=== PATIENT | male | born 1950 | race Caucasian/White ===

== ENCOUNTER 2020-11-17 14:43 | Inpatient (IN) ==
[2020-11-17] MEDS ORDERED: Acetaminophen 325 MG TABLET PO PRN (17:36)
[2020-11-17] MEDS ORDERED: Ondansetron 4 MG/2 ML VIAL IVP PRN (17:36)
[2020-11-17] MEDS ORDERED: Naloxone 0.4 MG/ML INJ IVP PRN (17:36)
[2020-11-17] MEDS ORDERED: *HR* HYDROcodone/Acet 5/325 mg TABLET PO PRN (17:36)
[2020-11-17] MEDS ORDERED: Melatonin 3 MG TABLET PO PRN (17:36)
[2020-11-17] MEDS ORDERED: Losartan/HCTZ 50-12.5 TABLET PO ONE (17:42)
[2020-11-17] MEDS ORDERED: carvediloL 6.25 MG TABLET PO SCH (17:45)
[2020-11-17 17:55] LABS: Basophils % 0.4 %; Eosinophils # 0.1 K/mcL (0.0-0.6); Eosinophils % 0.9 %; Hematocrit 41.2 % (37.5-50.1); Hemoglobin 13.4 g/dL (12.9-16.9); Immature Granulocytes % 0.3 % (0-4); Lymphocytes # 1.3 K/mcL (0.6-4.6); Lymphocytes % 16.8 %; Mean Corpuscular HGB Conc 32.5 g/dL (31.6-35.5); Mean Corpuscular Hemoglobin 27.1 pg (28.0-33.3); Mean Corpuscular Volume 83.4 fL (83.0-100.0); Mean Platelet Volume 9.4 fL (9.4-12.4); Monocytes # 0.4 K/mcL (0.0-1.3); Monocytes % 5.7 %; Neutrophils # 5.9 K/mcL (1.6-8.9); Platelet Count 267 K/mcL (140-400); Red Blood Count 4.94 M/mcL (4.19-5.50); Red Cell Distribution Width 13.6 % (11.5-14.5); Segmented Neutrophils % 75.9 %; White Blood Count 7.7 K/mcL (4.3-11.1)
[2020-11-17 18:17] LABS: BUN/Creatinine Ratio 16 (6-26); Blood Urea Nitrogen 16 mg/dL (8-23); Carbon Dioxide 25 mEq/L (23-29); Chloride 103 mEq/L (98-107); Glucose 109 mg/dL (70-105); Magnesium 2.3 mg/dL (1.6-2.6); Osmolality,Calculated 286 (280-300); Sodium 137 mEq/L (136-145); eGFR For African Americans > 60 (> 60); eGFR For Non-African Americans > 60 (> 60)
[2020-11-17] MEDS: Aspirin Enteric Coated 81 MG Tablet PO SCH (21:32)
[2020-11-18 05:18] LABS: Hematocrit 40.9 % (37.5-50.1); Hemoglobin 13.1 g/dL (12.9-16.9); Mean Corpuscular Hemoglobin 26.9 pg (28.0-33.3); Mean Platelet Volume 9.2 fL (9.4-12.4); Platelet Count 244 K/mcL (140-400); Red Blood Count 4.87 M/mcL (4.19-5.50); Red Cell Distribution Width 13.4 % (11.5-14.5); White Blood Count 6.5 K/mcL (4.3-11.1)
[2020-11-18 05:36] LABS: BUN/Creatinine Ratio 16 (6-26); Blood Urea Nitrogen 16 mg/dL (8-23); Calcium 9.9 mg/dL (8.6-10.3); Carbon Dioxide 24 mEq/L (23-29); Chloride 103 mEq/L (98-107); Glucose 99 mg/dL (70-105); Osmolality,Calculated 283 (280-300); Potassium 3.7 mEq/L (3.5-5.1); Sodium 136 mEq/L (136-145); eGFR For African Americans > 60 (> 60); eGFR For Non-African Americans > 60 (> 60)
[2020-11-18] MEDS ORDERED: Perflutren Lipid Microsphere 1.3 ML in 0.9 % Sodium Chloride 8.7 ML IVP PRN (08:21)
[2020-11-18] MEDS: Aspirin Enteric Coated 81 MG Tablet PO SCH (08:37)
[2020-11-18] MEDS ORDERED: hydroCHLOROthiazide 25 MG TABLET PO SCH (09:00)
[2020-11-18] MEDS ORDERED: amLODIPine 5 MG TABLET PO SCH (09:00)
[2020-11-18] MEDS ORDERED: Isovue-370 500 ML BOTTLE IVP ONE (13:39)
[2020-11-18] MEDS: Famotidine 20 MG TABLET PO SCH (20:18)
[2020-11-19 05:06] LABS: Chol/HDL Ratio 4.1 (0-4.9)
[2020-11-19] MEDS: Aspirin Enteric Coated 81 MG Tablet PO SCH (09:05)
[2020-11-19] MEDS: Famotidine 20 MG TABLET PO SCH ×2 (09:05→20:31)
[2020-11-19 12:22] LABS: Adenovirus Not Detected (Not Detect); Bordetella Pertussis Not Detected (Not Detect); Chlamydophila pneumoniae Not Detected (Not Detect); Coronavirus 229E Not Detected (Not Detect); Coronavirus HKU1 Not Detected (Not Detect); Coronavirus NL63 Not Detected (Not Detect); Coronavirus OC43 Not Detected (Not Detect); Human Metapneumovirus Not Detected (Not Detect); Human Rhinovirus/Enterovirus Not Detected (Not Detect); Influenza A Subtype 2009 H1 Not Detected (Not Detect); Influenza B Not Detected (Not Detect); Mycoplasma pneumoniae Not Detected (Not Detect); Parainfluenza Virus 1 Not Detected (Not Detect); Parainfluenza Virus 2 Not Detected (Not Detect); Parainfluenza Virus 3 Not Detected (Not Detect); Parainfluenza Virus 4 Not Detected (Not Detect); Respiratory Syncytial Virus Not Detected (Not Detect); SARS-CoV-2 Not Detected (Not Detect)
[2020-11-20] MEDS: *HR* Enoxaparin 40 MG/0.4 ML SYRINGE SQ SCH (05:31)
[2020-11-20] MEDS: Famotidine 20 MG TABLET PO SCH ×2 (07:47→20:36)
[2020-11-20] MEDS: Aspirin Enteric Coated 81 MG Tablet PO SCH (07:48)
[2020-11-20] MEDS ORDERED: 0.9 % Sodium Chloride 500 ML IVC ONE (10:51)
[2020-11-20] MEDS ORDERED: *HR* Midazolam HCl 2 MG/2 ML VIAL IVP PRN (10:51)
[2020-11-20] MEDS ORDERED: Lidocaine Viscous Oral Soln 15 ML SOLUTION MM PRN (10:51)
[2020-11-20] MEDS: *HR* FentaNYL (PF) 100 MCG/2 ML VIAL IVP PRN ×4 (11:20→11:32)
[2020-11-20] MEDS: *HR* Midazolam HCl 5 MG/5 ML VIAL IVP ONE ×4 (11:20→11:32)
[2020-11-21] MEDS: *HR* Enoxaparin 40 MG/0.4 ML SYRINGE SQ SCH (05:37)
[2020-11-21 06:39] VITALS: BP 121/76
[2020-11-21] MEDS: Famotidine 20 MG TABLET PO SCH (07:33)
[2020-11-21] MEDS: Aspirin Enteric Coated 81 MG Tablet PO SCH (07:33)
== END 2020-11-21 10:36 | disposition home or self-care (01) | DRG 64 ==
LOC: 3ANU → SUATTDRO 17:11
PROVIDERS: ADMIT Internal Medicine; ATTEND Family Medicine

== ENCOUNTER 2021-06-16 10:24 | Inpatient (IN) ==
[~2021-06-16 10:24] MED LIST: Acetaminophen IV 1,000 MG/100 ML BAG IVPB ONE; Ringers Solution, Lactated 1,000 ML IVC ONE
[2021-06-16] MEDS ORDERED: CeFAZolin Syr 2,000MG/20 ML 2,000 MG/20 ML SYRINGE IVPB ONE (10:56)
[2021-06-16] MEDS ORDERED: Vancomycin 1,250 MG/262.5 ML IV.SOLN IVPB ONE (10:56)
[2021-06-16] MEDS ORDERED: Heparin 1,000 UNITS/500 mL 0 ML ONE (11:04)
[2021-06-16] MEDS ORDERED: Protamine Sulfate 50 MG/5 ML VIAL IVP ONE ×3 (11:10→15:30)
[2021-06-16] MEDS ORDERED: Vancomycin 1,000 MG VIAL ONE (11:11)
[2021-06-16] MEDS ORDERED: Heparin 1,000 UNITS/500 mL 1,000 ML ONE (11:17)
[2021-06-16] MEDS ORDERED: Nitroglycerin 0.4 MG TAB.SUBL SL PRN ×3 (11:39→17:53)
[2021-06-16] MEDS ORDERED: *HR* HYDROmorphone (PF) 1 MG/ML SYRINGE IVP PRN (11:39)
[2021-06-16] MEDS ORDERED: Albuterol 2.5 MG/3 ML NEBULIZER IH PRN (11:39)
[2021-06-16] MEDS ORDERED: Ondansetron 4 MG/2 ML VIAL IVP PRN (11:39)
[2021-06-16] MEDS ORDERED: Naloxone 0.4 MG/ML INJ IVP PRN ×2 (11:39→16:26)
[2021-06-16] MEDS ORDERED: *HR* Metoprolol 5 MG/5 ML VIAL IVP PRN (11:39)
[2021-06-16] MEDS ORDERED: *HR* FentaNYL (PF) 100 MCG/2 ML VIAL IVP PRN (11:39)
[2021-06-16] MEDS ORDERED: Lidocaine -MPF 2% 5 ML VIAL ONE (11:44)
[2021-06-16] MEDS ORDERED: *HR* Rocuronium Bromide 50 MG/5 ML VIAL ONE ×2 (11:44→13:30)
[2021-06-16] MEDS ORDERED: Ondansetron 4 MG/2 ML VIAL ONE (11:44)
[2021-06-16] MEDS ORDERED: *HR* Propofol 200 MG/20 ML VIAL IVP ONE ×2 (11:46→14:21)
[2021-06-16] MEDS ORDERED: *HR* FentaNYL (PF) 100 MCG/2 ML VIAL ONE (11:48)
[2021-06-16] MEDS ORDERED: *HR* Heparin 5,000 UNIT/ML VIAL ONE ×2 (11:58→13:36)
[2021-06-16] MEDS ORDERED: Famotidine 20 MG/2 ML VIAL IVP ONE (12:00)
[2021-06-16] MEDS ORDERED: Vancomycin 1,000 MG, Sodium Chloride IRRigation 1,000 ML IR ONE (12:00)
[2021-06-16] MEDS ORDERED: NiCARdipine 2.5 MG/10 ML Syringe IVPB ONE (12:58)
[2021-06-16] MEDS ORDERED: EPHEDrine 50 MG/ML VIAL ONE (13:30)
[2021-06-16] MEDS ORDERED: *HR* Labetalol 20 MG/4 ML SYRINGE IVP ONE (14:37)
[2021-06-16] MEDS ORDERED: Acetaminophen 325 MG TABLET PO PRN (16:26)
[2021-06-16] MEDS ORDERED: *HR* OxyCODONE Immed Rel 5 MG TABLET PO PRN (16:26)
[2021-06-16] MEDS ORDERED: 0.9 % Sodium Chloride 1,000 ML IVC SCH (16:26)
[2021-06-16] MEDS ORDERED: *HR* Labetalol 20 MG/4 ML SYRINGE IVP PRN (16:26)
[2021-06-16] MEDS ORDERED: *HR* HYDROcodone/Acet 5/325 mg TABLET PO PRN (16:26)
[2021-06-16] MEDS ORDERED: Famotidine 20 MG TABLET PO PRN (17:42)
[2021-06-16] MEDS: *HR* Metoprolol 5 MG/5 ML VIAL IVP SCH (18:22)
[2021-06-16] MEDS: CeFAZolin 2 GM/120 ML BAG IVPB SCH (19:55)
[2021-06-17] MEDS: *HR* Metoprolol 5 MG/5 ML VIAL IVP SCH ×2 (00:29→06:05)
[2021-06-17] MEDS ORDERED: *HR* Heparin 5,000 UNIT/ML VIAL SQ SCH ×2 (06:00)
[2021-06-17] MEDS: CeFAZolin 2 GM/120 ML BAG IVPB SCH (06:04)
[2021-06-17 08:10] VITALS: PULSE 71
[2021-06-17 08:16] VITALS: BP 109/68; TEMP 99.5; O2SAT 95
[2021-06-17] MEDS ORDERED: carvediloL 6.25 MG TABLET PO SCH (09:00)
[2021-06-17] MEDS ORDERED: hydroCHLOROthiazide 25 MG TABLET PO SCH (09:00)
== END 2021-06-17 13:42 | disposition home or self-care (01) | DRG 254 ==
LOC: SAMDAY 10:24 → 2NNU 15:48
PROVIDERS: ADMIT Surgery; ATTEND Surgery